=== PATIENT | female | born 1960 | race American Indian/Alaskan Native ===

== ENCOUNTER 2017-02-18 11:16 | Emergency (ER) | payer SELFPAY ==
[2017-02-18 12:23] VITALS: BP 149/98
[2017-02-18] MEDS ORDERED: FLEXERIL PO ONE (12:55)
[2017-02-18] MEDS ORDERED: NORCO 5/325 PO ONE (12:55)
--- NOTE | 2017-02-18 13:16 | Emergency Department Report ---
HPI - General Chief Complaint: Pain General Time Seen by Provider: 02/18/17 12:39 - HPI HPI: 56-year-old female presents today complaining of pain in left shoulder, arm and elbow. She reports a work injury in September 2016. Patient has been following up with her worker's comp doctor and has been worked up. She has tried physical therapy, tramadol and naproxen. Patient states that tramadol is not relieving her pain at this time. She is in the middle of switching to a specialist and would like something for her pain control. Rates her pain as a 10 out of 10. Patient has been diagnosed with rotator cuff sprain and a tendon tear in her left elbow and shoulder. Patient reports mild paresthesias in her left arm. Denies any new symptoms and states all her symptoms have been going on since September 2016. Denies fever, chills, nausea, vomiting, chest pain, shortness of breath, abdominal pain. ED Past Medical Hx - Past Medical History Hx Hypertension: No (PATIENT DENIES) Hx CVA: No Hx Arthritis: Yes (LEFT KNEE) - Surgical History Additional Surgical History: right shoulder surgery 2002, benign kidney tumor removed at age 14. left knee surgery - Social History Smoking Status: Never Smoker Substance Use Type: None - Medications Home Medications: Home Medications Medication Instructions Recorded Confirmed Last Taken Type Cyclobenzaprine [Flexeril 10mg] 10 mg PO TID PRN #20 tablet 08/27/14 Unknown Rx HYDROcodone/APAP 5-325 [[place] 2 each PO Q6HR PRN #20 tablet 08/27/14 Unknown Rx 5/325] Acetaminophen/Codeine [Tylenol 1 tab PO Q6H PRN #15 tab 02/18/17 Unknown Rx /Codeine # 3 tab] Cyclobenzaprine [Flexeril] 10 mg PO TID PRN #15 tablet 02/18/17 Unknown Rx ED Review of Systems ROS: Stated complaint: LEFT ARM INJURY Other details as noted in HPI Constitutional: denies: chills, fever, malaise Eyes: denies: eye pain ENT: denies: ear pain, throat pain, congestion Respiratory: denies: cough, shortness of breath, wheezing Cardiovascular: denies: chest pain, palpitations Endocrine: no symptoms reported Gastrointestinal: denies: abdominal pain, nausea, vomiting Musculoskeletal: arthralgia Neurological: paresthesias. denies: headache, weakness Physical Exam - Physical Exam Vital Signs: Vital Signs 02/18/17 12:19 Temperature 98.4 F Pulse Rate 88 Respiratory 16 Rate Blood Pressure 149/98 O2 Sat by Pulse 100 Oximetry Physical Exam: GENERAL: The patient is well-developed and well-nourished. Appears uncomfortable due to pain. HEAD: Normocephalic. Atraumatic. NECK: Supple, nontender, without lymphadenopathy. No vertebral or paraspinal tenderness to palpation. CHEST/LUNGS: Clear to auscultation throughout. HEART/CARDIOVASCULAR: Regular rate and rhythm. No murmurs, rubs or gallops. ABDOMEN: Abdomen is soft, nontender. Bowel sounds normoactive. No guarding or rebound tenderness. LEFT UPPER EXTREMITY: Tenderness to palpation of left shoulder and elbow joint. Limited shoulder range of motion. Full range of motion, but painful. Peripheral pulses intact. Capillary refill less than 2 seconds. Normal sensation. 2 point discrimination intact. Full wrist and digit range of motion. MUSCULOSKELETAL: Otherwise musculoskeletal exam remarkable. NEURO: Alert and oriented x 3. Normal gait. ED Course Vital Signs 02/18/17 12:19 Temperature 98.4 F Pulse Rate 88 Respiratory 16 Rate Blood Pressure 149/98 O2 Sat by Pulse 100 Oximetry ED Medical Decision Making - Lab Data Vital Signs 02/18/17 12:19 Temperature 98.4 F Pulse Rate 88 Respiratory 16 Rate Blood Pressure 149/98 O2 Sat by Pulse 100 Oximetry - Medical Decision Making 56-year-old female presents today complaining of left shoulder and elbow pain post a work injury that occurred in September 2016. Patient has been provided with a referral for orthopedic to follow-up with. Explained to patient that we will only be able to provide her with short-term pain control and the importance of following up with a specialist. Patient expressed understanding. Patient is in no acute distress at this time. She will be discharged home and is encouraged to follow up with a primary care provider. She will be sent home on Flexeril and Tylenol 3 and is encouraged to return to the emergency room for any worsening symptoms. Critical care attestation.: If time is entered above; I have spent that time in minutes in the direct care of this critically ill patient, excluding procedure time. ED Disposition Clinical Impression: Shoulder pain Qualifiers: Chronicity: acute Laterality: left Qualified Code(s): M25.512 - Pain in left shoulder Elbow pain Qualifiers: Laterality: left Qualified Code(s): M25.522 - Pain in left elbow Disposition: - TO HOME OR SELFCARE Is pt being admited?: No Does the pt Need Aspirin: No Condition: Stable Instructions: Rotator Cuff Injury (ED), Shoulder Sprain (ED), Tendinitis (ED), Elbow Sprain (ED) Additional Instructions: Follow-up with primary care provider and housing development specialist. Return to the emergency department if symptoms worsen. Prescriptions: Acetaminophen/Codeine [Tylenol /Codeine # 3 tab] 1 tab PO Q6H PRN #15 tab PRN Reason: Pain Cyclobenzaprine [Flexeril] 10 mg PO TID PRN #15 tablet PRN Reason: Muscle Spasm Referrals: PRIMARY CAREMD [Primary Care Provider] - 3-5 Days PATRICIA LAGUERRE MD [Staff Physician] - 3-5 Days Forms: Work/School Release Form(ED) Time of Disposition: 13:18
== END 2017-02-18 13:52 | disposition home or self-care (01) ==
LOC: ED 11:16
DX: M25.512 Pain in left shoulder (principal); M25.522 Pain in left elbow
CPT/HCPCS: 99282

== ENCOUNTER 2017-09-03 08:25 | Emergency (ER) | payer SELFPAY ==
[2017-09-03 08:28] VITALS: BP 153/94
[2017-09-03] MEDS ORDERED: VISTARIL PO ONE ×2 (09:10→09:22)
--- NOTE | 2017-09-03 09:14 | Emergency Department Report ---
ED Rash HPI - HPI Chief Complaint: Skin Rash Stated Complaint: RASH Time Seen by Provider: 09/03/17 08:42 Duration: 3 Days Location: Chest (right side), Upper Extremities (right shoulder) Suspected Cause: Unknown Rash Symptoms: Yes Itching, No Facial Swelling, No Tongue/Oral Swelling, No Breathing Difficulties, No Choking Sensation, No Wheezing/Dyspnea, No Peeling, No Blistering, No Fever, No Lightheaded, No Malaise, No Myalgias Severity: mild Other History: This is a 57-year-old -[place] female presents with the periodic rash on left chest and left shoulder. Patient reports noticing a rash on Tuesday afternoon. She started applying an alcohol and Vaseline to the area with no improvement of symptoms. Rash started out on chest in a small area that increased to right shoulder as she scratched. Patient denies change in soaps, detergents, numbness or tingling, insect bite, and arthralgia. ED Review of Systems ROS: Stated complaint: RASH Other details as noted in HPI Constitutional: denies: chills, fever Respiratory: denies: cough, shortness of breath, wheezing Cardiovascular: denies: chest pain, palpitations Gastrointestinal: denies: abdominal pain, nausea, diarrhea Musculoskeletal: denies: back pain, joint swelling, arthralgia, myalgia Skin: rash (right-sided chest and right shoulder). denies: lesions Neurological: denies: headache, weakness, numbness, paresthesias Psychiatric: denies: anxiety, depression ED Past Medical Hx - Past Medical History Hx Hypertension: No (PATIENT DENIES) Hx CVA: No Hx Arthritis: Yes (LEFT KNEE) - Surgical History Additional Surgical History: right shoulder surgery 2002, benign kidney tumor removed at age 14. left knee surgery - Social History Smoking Status: Never Smoker Substance Use Type: None - Medications Home Medications: Home Medications Medication Instructions Recorded Confirmed Last Taken Type Cyclobenzaprine [Flexeril 10mg] 10 mg PO TID PRN #20 tablet 08/27/14 Unknown Rx HYDROcodone/APAP 5-325 [[place] 2 each PO Q6HR PRN #20 tablet 08/27/14 Unknown Rx 5/325] Acetaminophen/Codeine [Tylenol 1 tab PO Q6H PRN #15 tab 02/18/17 Unknown Rx /Codeine # 3 tab] Cyclobenzaprine [Flexeril] 10 mg PO TID PRN #15 tablet 02/18/17 Unknown Rx Nystatin/Triamcin 60 gm TP BID #1 cream..g. 09/03/17 Unknown Rx [Nystatin-Triamcinolone Cream] hydrOXYzine PAMOATE [Vistaril] 25 mg PO Q6HR PRN #20 capsule 09/03/17 Unknown Rx Rash Exam - Exam General: Vital signs noted. No distress. Alert and acting appropriately. HEENT: No Periorbital Edema, No Conjuctival Injection, No Chemosis, No Perioral Edema, No Tongue Edema, No Uvular Edema, No Compromised Airway, No Drooling Lungs: Yes Good Air Exchange (Normal Breath Sounds), No Wheezes, No Ronchi, No Stridor, No Cough, No Labored Respirations, No Retractions, No Use of Accessory Muscles, No Other Abnormal Lung Sounds Heart: Yes Regular, No Murmur Skin: Yes Maculopapular Rash (3 cm erythematous macules x 3 on right upper chest area above breast to right shoulder ), No Urticarial Rash, No Morbilliform rash, No Bulla(e), No Excoriations, No Weeping, No Tenderness, No Erythema, No Edema, No Encrustations, No Other Other: Positive: Abdomen Normal, Neurologic Normal, Musculoskeletal Normal ED Course Vital Signs 09/03/17 08:26 Temperature 98.0 F Pulse Rate 99 H Respiratory 20 Rate Blood Pressure 153/94 O2 Sat by Pulse 99 Oximetry ED Medical Decision Making - Medical Decision Making This is a 57 y.o. Female presents with rash to the right side of chest and right shoulder for 3 days. Patient examined by me. No distress noted. Vitals stable. Physical assessment susceptible of contact dermatitis. Start nystatin/ triamcinolone cream and f/u with PCP in 24-72 hours. Discussed plan with patient and agreed to plan. Critical care attestation.: If time is entered above; I have spent that time in minutes in the direct care of this critically ill patient, excluding procedure time. ED Disposition Clinical Impression: Contact dermatitis Qualifiers: Contact dermatitis type: allergic Contact dermatitis trigger: unspecified trigger Qualified Code(s): L23.9 - Allergic contact dermatitis, unspecified cause Disposition: TO HOME OR SELFCARE Is pt being admited?: No Does the pt Need Aspirin: No Condition: Stable Instructions: Contact Dermatitis (ED) Additional Instructions: Apply a thin layer of nystatin/triamcinolone cream twice a day for 5-10 days. Wash area daily and keep clean and dry. Follow up with primary care provider in 24-72 hours. Prescriptions: hydrOXYzine PAMOATE [Vistaril] 25 mg PO Q6HR PRN #20 capsule PRN Reason: Itching Nystatin/Triamcin [Nystatin-Triamcinolone Cream] 60 gm TP BID #1 cream..g. Referrals: [facility] [Outside] - 3-5 Days [facility] [Outside] - 3-5 Days [facility] [Outside] - 3-5 Days Time of Disposition: 09:26 Print Language: ROMANSH
== END 2017-09-03 09:54 | disposition home or self-care (01) ==
LOC: ED 08:25
DX: L23.9 Allergic contact dermatitis, unspecified cause (principal); M19.90 Unspecified osteoarthritis, unspecified site
CPT/HCPCS: 99282; Q0177

== ENCOUNTER 2017-11-02 14:31 | Emergency (ER) | payer OTHER ==
[2017-11-02 14:51] VITALS: BP 144/90
[2017-11-02] MEDS ORDERED: NORCO 10/325 PO ONE (16:23)
[2017-11-02] MEDS ORDERED: MOTRIN PO ONE (16:24)
--- NOTE | 2017-11-02 16:52 | Emergency Department Report ---
ED Extremity Problem HPI - General Chief complaint: Back Pain/Injury Stated complaint: RIGHT SHOULDER, RIGHT ELBOW, LOWER BACK Time Seen by Provider: 11/02/17 16:15 Source: patient Mode of arrival: Ambulatory Limitations: No Limitations - History of Present Illness Initial comments: 57-year-old female past medical history chronic joint pain, multiple joint surgeries acute on chronic right shoulder pain and lower back pain. Denies fevers chills nausea vomiting dysuria hematuria or increased urinary frequency. States that she feels pain when she rotates her right shoulder or bends to pick things up. Patient is awake alert and oriented 3 not in acute distress. States that her right shoulder and lower back have been aching for months. Is not currently have a primary doctor or a paintings restorer. Not seen orthopedics for this problem at all the past. MD Complaint: extremity pain - Related Data Previous Rx's Medication Instructions Recorded Last Taken Type Cyclobenzaprine [Flexeril 10mg] 10 mg PO TID PRN #20 tablet 08/27/14 Unknown Rx HYDROcodone/APAP 5-325 [[place] 2 each PO Q6HR PRN #20 tablet 08/27/14 Unknown Rx 5/325] Acetaminophen/Codeine [Tylenol 1 tab PO Q6H PRN #15 tab 02/18/17 Unknown Rx /Codeine # 3 tab] Cyclobenzaprine [Flexeril] 10 mg PO TID PRN #15 tablet 02/18/17 Unknown Rx Nystatin/Triamcin 60 gm TP BID #1 cream..g. 09/03/17 Unknown Rx [Nystatin-Triamcinolone Cream] hydrOXYzine PAMOATE [Vistaril] 25 mg PO Q6HR PRN #20 capsule 09/03/17 Unknown Rx Hydroxyzine HCl 25 mg PO BID PRN #20 tablet 11/02/17 Unknown Rx Ibuprofen [Motrin] 800 mg PO Q8HR PRN #30 tablet 11/02/17 Unknown Rx Allergies Allergy/AdvReac Type Severity Reaction Status Date / Time No Known Allergies Allergy Verified 09/03/17 08:26 ED Review of Systems ROS: Stated complaint: RIGHT SHOULDER, RIGHT ELBOW, LOWER BACK Other details as noted in HPI ED Past Medical Hx - Past Medical History Previous Medical History?: Yes Hx Hypertension: (PATIENT DENIES) Hx CVA: No Hx Arthritis: Yes (LEFT KNEE) - Surgical History Past Surgical History?: Yes Additional Surgical History: right shoulder surgery 2002, benign kidney tumor removed at age 14. left knee surgery. left elbow and shoulder surgery June 2017 - Social History Smoking Status: Never Smoker Substance Use Type: None - Medications Home Medications: Home Medications Medication Instructions Recorded Confirmed Last Taken Type Cyclobenzaprine [Flexeril 10mg] 10 mg PO TID PRN #20 tablet 08/27/14 Unknown Rx HYDROcodone/APAP 5-325 [[place] 2 each PO Q6HR PRN #20 tablet 08/27/14 Unknown Rx 5/325] Acetaminophen/Codeine [Tylenol 1 tab PO Q6H PRN #15 tab 02/18/17 Unknown Rx /Codeine # 3 tab] Cyclobenzaprine [Flexeril] 10 mg PO TID PRN #15 tablet 02/18/17 Unknown Rx Nystatin/Triamcin 60 gm TP BID #1 cream..g. 09/03/17 Unknown Rx [Nystatin-Triamcinolone Cream] hydrOXYzine PAMOATE [Vistaril] 25 mg PO Q6HR PRN #20 capsule 09/03/17 Unknown Rx Hydroxyzine HCl 25 mg PO BID PRN #20 tablet 11/02/17 Unknown Rx Ibuprofen [Motrin] 800 mg PO Q8HR PRN #30 tablet 11/02/17 Unknown Rx ED Physical Exam - General Limitations: No Limitations ED Course Vital Signs 11/02/17 11/02/17 11/02/17 14:47 16:29 16:30 Temperature 98.3 F Pulse Rate 88 Respiratory 18 18 18 Rate Blood Pressure 144/90 O2 Sat by Pulse 99 Oximetry ED Medical Decision Making - Medical Decision Making A/P: Chronic lower back pain and chronic right shoulder pain 1-range of motion right shoulder and lower back preserved 2-I checked the [place] prescription monitoring program site patient last received 40 Tylenol 3's on 09/16/2017 from Workmen's Comp. physician. Patient stated that she is following with Workmen's Comp. doctor for chronic back pain. As patient has received multiple prescriptions for narcotics in 2018 I will refrain from further narcotic prescriptions at this time. I will give patient prescription for anti-inflammatory pain medicine and advised to follow up with her Workmen's Comp. physician and refer her to pain management 3-vital signs stable for discharge 4- x-rays consistent with chronic degenerative joint disease Critical care attestation.: If time is entered above; I have spent that time in minutes in the direct care of this critically ill patient, excluding procedure time. ED Disposition Clinical Impression: Chronic right shoulder pain Chronic back pain Qualifiers: Back pain location: low back pain Back pain laterality: unspecified Sciatica presence: without sciatica Qualified Code(s): M54.5 - Low back pain; G89.29 - Other chronic pain Disposition: TO HOME OR SELFCARE Is pt being admited?: No Does the pt Need Aspirin: No Condition: Stable Instructions: Back Pain (ED), Chronic Back Pain (ED), Arthralgia (ED), Osteoarthritis (ED), Insomnia (ED) Prescriptions: Hydroxyzine HCl 25 mg PO BID PRN #20 tablet PRN Reason: Insomnia Ibuprofen [Motrin] 800 mg PO Q8HR PRN #30 tablet PRN Reason: Pain , Severe (7-10) Referrals: [facility] [Provider Group] - 3-5 Days MARCOS CALIXTO MD [Referring] - 3-5 Days PATRICIA LAGUERRE MD [Staff Physician] - 3-5 Days Time of Disposition: 17:40
--- NOTE | 2017-11-02 18:38 | XRay Report ---
FINAL REPORT EXAM: XR SPINE LUMBOSACRAL 2-3V HISTORY: lower back pain TECHNIQUE: AP, lateral and lumbosacral spot views of the lumbar spine. PRIORS: None. FINDINGS: There are five lumbar type vertebral bodies. Normal alignment. No compression fracture. There is disc space narrowing at L5-S1. Multilevel facet arthropathy is seen throughout the lumbar spine. The paravertebral soft tissues are normal. IMPRESSION: Degenerative disc disease and facet arthropathy of the lumbar spine.
--- NOTE | 2017-11-02 18:38 | XRay Report ---
FINAL REPORT EXAM: XR SHOULDER BILAT 2+V HISTORY: b/l shoulder pain worse on right than left TECHNIQUE: Bilateral shoulders 6 views PRIORS: None. FINDINGS: At the right shoulder there is a surgical anchor within neural head. No fracture or dislocation is identified. Adjacent bony and soft tissue structures are unremarkable. AC joint appears intact. There is some narrowing of the glenohumeral joint space. At the left shoulder glenohumeral joint space appears narrowed. There is mild widened appearance at the AC joint which could be posttraumatic in nature or possibly related to rheumatoid arthritis. No acute fracture or dislocation is identified. Adjacent bony and soft tissue structures are unremarkable. IMPRESSION: Postoperative changes of the right shoulder likely indicating prior rotator cuff repair Mild widening of the AC joint the left which could be posttraumatic in nature. Rheumatoid arthritis is a differential consideration Bilateral degenerative narrowing at the glenohumeral joint space is
== END 2017-11-02 17:58 | disposition home or self-care (01) ==
LOC: ED 14:31
DX: M25.511 Pain in right shoulder (principal); G89.29 Other chronic pain; M54.5 Low back pain; M17.12 Unilateral primary osteoarthritis, left knee; Z98.890 Other specified postprocedural states
CPT/HCPCS: 72100; 99283

== ENCOUNTER 2017-11-21 23:27 | Emergency (ER) | payer SELFPAY ==
[2017-11-22 00:09] VITALS: BP 157/100
[2017-11-22] MEDS ORDERED: TYLENOL #3 PO ONE (03:52)
[2017-11-22] MEDS ORDERED: TORADOL IM ONE (03:52)
--- NOTE | 2017-11-22 03:54 | Emergency Department Report ---
ED Extremity Problem HPI - General Chief complaint: Extremity Injury, Lower Stated complaint: HEAD, BACK, LEFT HIP PAIN Time Seen by Provider: 11/22/17 03:51 Source: patient Mode of arrival: Ambulatory Limitations: No Limitations - History of Present Illness Initial comments: 57-year-old -[place] female reports pain to the left hip that is aggravated with ambulation. Patient reports that is relieved with rest. Patient denies any trauma but does report she is on her feet a lot. Patient reports that she's been taking that Motrin 800 mg which she reports usually helps but has not in the last day or 2. Patient reports that she is having a hard time getting rest at night secondary to pain. Patient denies any other concerns at this time MD Complaint: extremity pain -: days(s) (2) Location: left, lower extremity History of Same: No -: Yes arthralgia Radiation: none Severity scale (0 -10): 9 Quality: sharp Consistency: constant Improves with: rest Worsens with: weight bearing, walking - Related Data Previous Rx's Medication Instructions Recorded Last Taken Type Cyclobenzaprine [Flexeril 10mg] 10 mg PO TID PRN #20 tablet 08/27/14 Unknown Rx HYDROcodone/APAP 5-325 [[place] 2 each PO Q6HR PRN #20 tablet 08/27/14 Unknown Rx 5/325] Acetaminophen/Codeine [Tylenol 1 tab PO Q6H PRN #15 tab 02/18/17 Unknown Rx /Codeine # 3 tab] Cyclobenzaprine [Flexeril] 10 mg PO TID PRN #15 tablet 02/18/17 Unknown Rx Nystatin/Triamcin 60 gm TP BID #1 cream..g. 09/03/17 Unknown Rx [Nystatin-Triamcinolone Cream] hydrOXYzine PAMOATE [Vistaril] 25 mg PO Q6HR PRN #20 capsule 09/03/17 Unknown Rx Hydroxyzine HCl 25 mg PO BID PRN #20 tablet 11/02/17 Unknown Rx Ibuprofen [Motrin 800 MG tab] 800 mg PO Q8HR PRN #30 tablet 11/22/17 Unknown Rx Allergies Allergy/AdvReac Type Severity Reaction Status Date / Time No Known Allergies Allergy Verified 09/03/17 08:26 ED Review of Systems ROS: Stated complaint: HEAD, BACK, LEFT HIP PAIN Other details as noted in HPI Constitutional: no symptoms reported Eyes: denies: eye pain, eye discharge, vision change Respiratory: denies: cough, shortness of breath, wheezing Cardiovascular: denies: chest pain, palpitations Endocrine: no symptoms reported Gastrointestinal: denies: abdominal pain, nausea, diarrhea Genitourinary: denies: urgency, dysuria, discharge Musculoskeletal: arthralgia Skin: denies: rash, lesions Neurological: denies: headache, weakness, paresthesias Psychiatric: denies: anxiety, depression Hematological/Lymphatic: denies: easy bleeding, easy bruising ED Past Medical Hx - Past Medical History Hx Hypertension: (PATIENT DENIES) Hx CVA: No Hx Arthritis: Yes (LEFT KNEE) - Surgical History Additional Surgical History: right shoulder surgery 2002, benign kidney tumor removed at age 14. left knee surgery. left elbow and shoulder surgery June 2017 - Social History Smoking Status: Never Smoker - Medications Home Medications: Home Medications Medication Instructions Recorded Confirmed Last Taken Type Cyclobenzaprine [Flexeril 10mg] 10 mg PO TID PRN #20 tablet 08/27/14 Unknown Rx HYDROcodone/APAP 5-325 [[place] 2 each PO Q6HR PRN #20 tablet 08/27/14 Unknown Rx 5/325] Acetaminophen/Codeine [Tylenol 1 tab PO Q6H PRN #15 tab 02/18/17 Unknown Rx /Codeine # 3 tab] Cyclobenzaprine [Flexeril] 10 mg PO TID PRN #15 tablet 02/18/17 Unknown Rx Nystatin/Triamcin 60 gm TP BID #1 cream..g. 09/03/17 Unknown Rx [Nystatin-Triamcinolone Cream] hydrOXYzine PAMOATE [Vistaril] 25 mg PO Q6HR PRN #20 capsule 09/03/17 Unknown Rx Hydroxyzine HCl 25 mg PO BID PRN #20 tablet 11/02/17 Unknown Rx Ibuprofen [Motrin 800 MG tab] 800 mg PO Q8HR PRN #30 tablet 11/22/17 Unknown Rx ED Physical Exam - General Limitations: No Limitations General appearance: alert, in no apparent distress - Head Head exam: Present: atraumatic, normocephalic - Eye Eye exam: Present: EOMI - ENT ENT exam: Present: mucous membranes moist - Expanded Lower Extremity Exam Left Upper Leg exam: Present: normal inspection, full ROM. Absent: tenderness Knee exam: Present: normal inspection, full ROM. Absent: tenderness Lower Leg exam: Present: normal inspection, full ROM. Absent: tenderness Ankle exam: Present: normal inspection, full ROM Foot/Toe exam: Present: normal inspection, full ROM Gait: Positive: antalgic - Neurological Exam Neurological exam: Present: alert, oriented X3 - Psychiatric Psychiatric exam: Present: normal affect, normal mood - Skin Skin exam: Present: warm, dry, intact, normal color. Absent: rash ED Course Vital Signs 11/22/17 00:02 Temperature 98.3 F Pulse Rate 85 Blood Pressure 157/100 O2 Sat by Pulse 98 Oximetry ED Medical Decision Making - Medical Decision Making Patient has been seen by this provider in fast track. Toradol 30 mg IM given for pain management. Will discharge patient on ibuprofen 800 mg. Will refer patient to orthopedist. Critical care attestation.: If time is entered above; I have spent that time in minutes in the direct care of this critically ill patient, excluding procedure time. ED Disposition Clinical Impression: Arthritis, Left hip pain, Morbid obesity Disposition: TO HOME OR SELFCARE Is pt being admited?: No Does the pt Need Aspirin: No Condition: Stable Additional Instructions: Please take pain medication as needed. Please follow up with orthopedist. Prescriptions: Ibuprofen [Motrin 800 MG tab] 800 mg PO Q8HR PRN #30 tablet PRN Reason: Pain , Severe (7-10) Referrals: PRIMARY MD ROXIE [Primary Care Provider] - 3-5 Days PATRICIA LAGUERRE MD [Staff Physician] - 3-5 Days Forms: Work/School Release Form(ED)
== END 2017-11-22 04:41 | disposition home or self-care (01) ==
LOC: ED 23:27
DX: M25.552 Pain in left hip (principal); M17.12 Unilateral primary osteoarthritis, left knee; E66.01 Morbid (severe) obesity due to excess calories; Z68.38 Body mass index [BMI] 38.0-38.9, adult; Z79.899 Other long term (current) drug therapy
CPT/HCPCS: 96372; 99282; J1885

== ENCOUNTER 2018-10-22 17:19 | Emergency (ER) | payer OTHER ==
--- NOTE | 2018-10-22 17:53 | Event Note ---
ED Screening Note Date of service: 10/22/18 Time: 17:52 ED Screening Note: 58 y/o comes in 3 week history of knot on left leg that keeps on moving. This initial assessment/diagnostic orders/clinical plan/treatment(s) is/are subject to change based on patients health status, clinical progression and re- assessment by fellow clinical providers in the ED. Further treatment and workup at subsequent clinical providers discretion. Patient/guardian urged not to elope from the ED as their condition may be serious if not clinically assessed and managed. Initial orders include:
[2018-10-22] MEDS ORDERED: IBUPROFEN PO ONE (19:38)
[2018-10-22] MEDS ORDERED: ZOFRAN ODT PO ONE (19:38)
--- NOTE | 2018-10-22 20:48 | Vascular Lab Report ---
BILATERAL DUPLEX DOPPLER LOWER EXTREMITY VEINS INDICATION: Leg pain, swelling, 3 months status post right knee surgery, palpable area right leg TECHNIQUE: Duplex doppler imaging was performed through the veins of both lower extremities using ines ous compression and other maneuvers. COMPARISON: None available. FINDINGS: Right Common Femoral vein: Negative. Right Superficial Femoral vein: Negative. Right Popliteal vein: Negative. Right Calf veins: Negative. Left Common Femoral vein: Negative. Left Superficial Femoral vein: Negative. Left Popliteal vein: Negative. Left Calf veins: Negative. Additional findings: Focal imaging of the area of palpable concern shows no abnormalities. IMPRESSION: No sonographic evidence for DVT in either lower extremity. Signer Name: Ravin Mckeon MD Signed: 10/22/2018 8:44 PM Workstation Name: [id number]
--- NOTE | 2018-10-22 21:22 | Emergency Department Report ---
ED Extremity Problem HPI - General Chief complaint: Extremity Injury, Lower Stated complaint: KNOT ON LEG Time Seen by Provider: 10/22/18 19:30 Source: patient Mode of arrival: Ambulatory Limitations: No Limitations - History of Present Illness Initial comments: Patient is a 58-year-old -[place] female with a history of chronic osteoarthritis and status post right knee arthroscopic procedure 3 months ago who presents to the ED with complaint of acute onset persistent anterior right lower leg pain with a palpable swollen mass in the last 3 weeks. Patient states that the mass has been "moving proximally"in the last 1 week. Patient denies shortness of breath, chest pain, dizziness, nausea, vomiting, numbness and tingling of lower extremities bilaterally, traumatic injury, heavy lifting, fall, fever or chills and cough. MD Complaint: extremity pain (anterior right lower leg), extremity swelling (anterior right lower leg) -: Sudden, week(s) (3) Location: right, lower extremity History of Same: No -: Yes myalgia, Yes arthralgia, No fever, No associated dyspnea, No associated chest pain Radiation: none Severity scale (0 -10): 6 Quality: aching, sharp Consistency: constant Improves with: nothing Worsens with: walking, palpation Associated Symptoms: denies other symptoms, arthralgias. denies: chest pain, shortness of breath, fever, myalgias, rash - Related Data Previous Rx's Medication Instructions Recorded Last Taken Type Cyclobenzaprine [Flexeril 10mg] 10 mg PO TID PRN #20 tablet 08/27/14 Unknown Rx HYDROcodone/APAP 5-325 [[place] 2 each PO Q6HR PRN #20 tablet 08/27/14 Unknown Rx 5/325] Acetaminophen/Codeine [Tylenol 1 tab PO Q6H PRN #15 tab 02/18/17 Unknown Rx /Codeine # 3 tab] Cyclobenzaprine [Flexeril] 10 mg PO TID PRN #15 tablet 02/18/17 Unknown Rx Nystatin/Triamcin 60 gm TP BID #1 cream..g. 09/03/17 Unknown Rx [Nystatin-Triamcinolone Cream] hydrOXYzine PAMOATE [Vistaril] 25 mg PO Q6HR PRN #20 capsule 09/03/17 Unknown Rx hydrOXYzine HCl [Hydroxyzine HCl] 25 mg PO BID PRN #20 tablet 11/02/17 Unknown Rx Ibuprofen [Motrin 800 MG tab] 800 mg PO Q8HR PRN #30 tablet 11/22/17 Unknown Rx Naproxen [Naprosyn TAB] 500 mg PO Q12H PRN #20 tablet 10/22/18 Unknown Rx Allergies Allergy/AdvReac Type Severity Reaction Status Date / Time No Known Allergies Allergy Verified 03/01/18 10:20 ED Review of Systems ROS: Stated complaint: KNOT ON LEG Other details as noted in HPI Constitutional: denies: chills, fever Eyes: denies: eye pain, eye discharge, vision change ENT: denies: ear pain, throat pain Respiratory: denies: cough, shortness of breath, wheezing Cardiovascular: denies: chest pain, palpitations Endocrine: no symptoms reported Gastrointestinal: denies: abdominal pain, nausea, diarrhea Genitourinary: denies: urgency, dysuria, discharge Musculoskeletal: arthralgia (Anterior right lower leg pain, mild swelling with a "swollen knot"). denies: back pain, joint swelling Skin: denies: rash, lesions Neurological: denies: headache, weakness, paresthesias Psychiatric: denies: anxiety, depression Hematological/Lymphatic: denies: easy bleeding, easy bruising ED Past Medical Hx - Past Medical History Hx Hypertension: (PATIENT DENIES) Hx CVA: No Hx Arthritis: Yes (LEFT KNEE,right knee) - Surgical History Additional Surgical History: right shoulder surgery 2002, benign kidney tumor removed at age 14. left knee surgery. left elbow and shoulder surgery June 2017 - Social History Smoking Status: Never Smoker Substance Use Type: None - Medications Home Medications: Home Medications Medication Instructions Recorded Confirmed Last Taken Type Cyclobenzaprine [Flexeril 10mg] 10 mg PO TID PRN #20 tablet 08/27/14 Unknown Rx HYDROcodone/APAP 5-325 [[place] 2 each PO Q6HR PRN #20 tablet 08/27/14 Unknown Rx 5/325] Acetaminophen/Codeine [Tylenol 1 tab PO Q6H PRN #15 tab 02/18/17 Unknown Rx /Codeine # 3 tab] Cyclobenzaprine [Flexeril] 10 mg PO TID PRN #15 tablet 02/18/17 Unknown Rx Nystatin/Triamcin 60 gm TP BID #1 cream..g. 09/03/17 Unknown Rx [Nystatin-Triamcinolone Cream] hydrOXYzine PAMOATE [Vistaril] 25 mg PO Q6HR PRN #20 capsule 09/03/17 Unknown Rx hydrOXYzine HCl [Hydroxyzine HCl] 25 mg PO BID PRN #20 tablet 11/02/17 Unknown Rx Ibuprofen [Motrin 800 MG tab] 800 mg PO Q8HR PRN #30 tablet 11/22/17 Unknown Rx Naproxen [Naprosyn TAB] 500 mg PO Q12H PRN #20 tablet 10/22/18 Unknown Rx ED Physical Exam - General Limitations: No Limitations General appearance: alert, in no apparent distress - Head Head exam: Present: atraumatic, normocephalic, normal inspection - Eye Eye exam: Present: normal appearance, PERRL, EOMI. Absent: scleral icterus, conjunctival injection, periorbital swelling, periorbital tenderness, other Pupils: Present: normal accommodation - ENT ENT exam: Present: normal exam, normal orophraynx, mucous membranes moist, TM's normal bilaterally, normal external ear exam - Neck Neck exam: Present: normal inspection, full ROM. Absent: tenderness, meningismus, lymphadenopathy, thyromegaly - Respiratory Respiratory exam: Present: normal lung sounds bilaterally. Absent: respiratory distress, wheezes, rales, rhonchi, chest wall tenderness, accessory muscle use, prolonged expiratory - Cardiovascular Cardiovascular Exam: Present: regular rate, normal rhythm, normal heart sounds. Absent: systolic murmur, diastolic murmur, rubs, gallop - GI/Abdominal GI/Abdominal exam: Present: soft, normal bowel sounds. Absent: distended, tenderness, guarding, hyperactive bowel sounds, hypoactive bowel sounds, organomegaly - Rectal Rectal exam: Present: deferred - Extremities Exam Extremities exam: Present: normal inspection, full ROM, tenderness (Mildly tender anterior right lower leg with palpable small subcutaneous mass.), normal capillary refill. Absent: pedal edema, joint swelling, calf tenderness - Back Exam Back exam: Present: normal inspection, full ROM. Absent: tenderness, CVA tenderness (R), CVA tenderness (L), muscle spasm, paraspinal tenderness - Neurological Exam Neurological exam: Present: alert, oriented X3, CN II-XII intact, normal gait, reflexes normal - Psychiatric Psychiatric exam: Present: normal affect, normal mood - Skin Skin exam: Present: warm, dry, intact, normal color. Absent: rash ED Course Vital Signs 10/22/18 17:53 Temperature 98.4 F Pulse Rate 94 H Respiratory 18 Rate Blood Pressure 128/88 O2 Sat by Pulse 98 Oximetry - Reevaluation(s) Reevaluation #1: 10/22/18 21:29 Patient is alert and oriented 3 and is not in distress with normal vital signs. The bilateral duplex scan on the extremities shows normal sonographic evidence of DVT bilaterally in the lower extremities. Patient was treated for pain and he sent home on medications for pain, and advised to follow-up with her primary care physician in 7-10 days for reevaluation. Patient was undressed and return to the ED immediately if symptoms get worse. ED Medical Decision Making - Radiology Data Radiology results: report reviewed, image reviewed Bilateral LE Doppler Duplex studies: No sonographic evidence of DVT on either lower extremity. - Medical Decision Making Patient is alert and oriented 3 and is not in distress with normal vital signs. The bilateral duplex scan on the extremities shows normal sonographic evidence of DVT bilaterally in the lower extremities. Patient was treated for pain and he sent home on medications for pain, and advised to follow-up with her primary care physician in 7-10 days for reevaluation. Patient was undressed and return to the ED immediately if symptoms get worse. - Differential Diagnosis Right LE DVT; Thrombophlebitis; Muscle strain, leg contusion Critical care attestation.: If time is entered above; I have spent that time in minutes in the direct care of this critically ill patient, excluding procedure time. ED Disposition Clinical Impression: Right leg swelling, Right leg pain Disposition: - TO HOME OR SELFCARE Is pt being admited?: No Does the pt Need Aspirin: No Condition: Stable Instructions: Arthralgia (ED), Muscle Strain (ED) Additional Instructions: Take medications with food, drink plenty of fluids and follow up with your primary care physician in 7-10 days for reevaluation. Return to the ED immediately if symptoms get worse. Prescriptions: Naproxen [Naprosyn TAB] 500 mg PO Q12H PRN #20 tablet PRN Reason: Pain , Severe (7-10) Referrals: QUIANA LAST MD [Primary Care Provider] - 3-5 Days Time of Disposition: 21:18 Print Language: ICELANDIC
[2018-10-22 21:52] VITALS: BP 121/83
== END 2018-10-22 21:25 | disposition home or self-care (01) ==
LOC: ED 17:19
DX: M79.661 Pain in right lower leg (principal); R22.41 Localized swelling, mass and lump, right lower limb; G89.29 Other chronic pain; Z79.1 Long term (current) use of non-steroidal anti-inflammatories (NSAID); Z79.899 Other long term (current) drug therapy; Z98.890 Other specified postprocedural states; Z86.718 Personal history of other venous thrombosis and embolism
CPT/HCPCS: 93970; 99283; Q0162

== ENCOUNTER 2019-03-15 11:58 | Emergency (ER) | payer OTHER ==
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
[2019-03-15] MEDS ORDERED: CYCLOBENZAPRINE 10 MG TAB PO ONE (14:49)
[2019-03-15] MEDS ORDERED: KETOROLAC 60 MG/2 ML INJ IM ONE (14:49)
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
[2019-03-15 15:21] VITALS: BP 190/110
== END 2019-03-15 15:20 | disposition home or self-care (01) ==
LOC: ED 11:58
DX: S16.1XXA Strain of muscle, fascia and tendon at neck level, initial encounter (principal); S39.012A Strain of muscle, fascia and tendon of lower back, initial encounter; S46.811A Strain of other muscles, fascia and tendons at shoulder and upper arm level, right arm, initial encounter; S46.812A Strain of other muscles, fascia and tendons at shoulder and upper arm level, left arm, initial encounter; M25.561 Pain in right knee; M25.551 Pain in right hip; R03.0 Elevated blood-pressure reading, without diagnosis of hypertension; M19.90 Unspecified osteoarthritis, unspecified site; V49.59XA Passenger injured in collision with other motor vehicles in traffic accident, initial encounter; Y93.89 Activity, other specified; Y92.488 Other paved roadways as the place of occurrence of the external cause; Y99.8 Other external cause status
CPT/HCPCS: 72040; 72100; 73562; 96372; 99283; J1885

== ENCOUNTER 2019-04-01 16:27 | Emergency (ER) | payer OTHER ==
[2019-04-01] MEDS ORDERED: HYDROcodone/ACETAMINOPHEN 5-325 MG TAB PO ONE (17:29)
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
[2019-04-01 20:50] VITALS: BP 152/92
== END 2019-04-01 20:40 | disposition home or self-care (01) ==
LOC: ED 16:27
DX: M25.511 Pain in right shoulder (principal); M25.512 Pain in left shoulder; M19.90 Unspecified osteoarthritis, unspecified site; Z98.890 Other specified postprocedural states; Z79.899 Other long term (current) drug therapy